=== PATIENT | female | born 1945 | race Caucasian/White ===

== ENCOUNTER 2018-07-18 12:23 | Inpatient (IN) | payer OTHER, MEDICARE ==
[2018-07-18 12:32] VITALS: BMI 21.9
--- NOTE | 2018-07-18 13:37 | PDOC ---
Attending Attestation - HPI HPI: 07/18/18 14:31 The patient is a 73 year old female, with a significant PMH of hypertension, hyperlipidemia, coronary artery disease s/p CABG, who presents to the emergency department with intermittent left sided chest pain for one day. The patient states the chest pain began last night suddenly while watching a movie, described as sharp, non radiating, lasting for 30 minutes before resolving on its own but later returning. The patient denies SOB during the chest pain episodes. However, the patient states she has had more shortness of breath over the past 2 weeks with mild exertion. The patient states she recently traveled to [place]. Denies any recent sick contacts or illness. The patient denies palpitations, headache and dizziness. Denies fever, chills, nausea, vomit, diarrhea and constipation. Denies dysuria, frequency, urgency and hematuria. Allergies: NKA PCP: Dr Mcrae Documentation prepared by Ramesh Peters, acting as medical claims representative for Rhona Chin MD. <Ramesh Peters - Last Filed: 07/18/18 14:31> - Resident Resident Name: Efrain Yoon - ED Attending Attestation I have performed the following: I have examined & evaluated the patient, The case was reviewed & discussed with the resident, I agree w/resident's findings & plan, Exceptions are as noted - Physicial Exam PE: GENERAL: Awake, alert, and fully oriented, in no acute distress HEAD: No signs of trauma EYES: PERRLA, EOMI, sclera anicteric, conjunctiva clear ENT: Auricles normal inspection, hearing grossly normal, nares patent, oropharynx clear without exudates. Moist mucosa NECK: Normal ROM, supple, no lymphadenopathy, JVD, or masses LUNGS: Breath sounds equal, clear to auscultation bilaterally. No wheezes, and no crackles HEART: Regular rate and rhythm, normal S1 and S2, no murmurs, rubs or gallops ABDOMEN: Soft, nontender, normoactive bowel sounds. No guarding, no rebound. No masses EXTREMITIES: Normal range of motion, no edema. No clubbing or cyanosis. No cords, erythema, or tenderness NEUROLOGICAL: Cranial nerves II through XII grossly intact. Normal speech, normal gait. Motor and sensation intact SKIN: Warm, Dry, normal turgor, no rashes or lesions noted. - Medical Decision Making Pt with cp, history of prior CABG. Attempted to obtain a copy of prior EKG, however, unable to (dish up person supervisor calibration was unable to access office records and urgent care medical records was not open today). Will work up for ACS. Serial EKGs. Plan for admission. <Rhona Chin - Last Filed: 07/18/18 15:07>
--- NOTE | 2018-07-18 13:40 | PDOC ---
History of Present Illness - General Chief Complaint: Chest Pain Stated Complaint: CHEST DISCOMFORT Time Seen by Provider: 07/18/18 13:29 History Source: Patient Exam Limitations: No Limitations - History of Present Illness Initial Comments: 07/18/18 13:29 73 yo female pmh of HTN, HLD, CAD, s/p CABG with 2 valves replaced (at [facility] 2015, not on AC, does take ASA 81 daily, PCP and Cardiology are [facility]) last Echo 2015 (prior to CABG) presents to the ED with non exertional CP and SOB on exertion. Pt states pain started suddenly last night while watching a movie, described as sharp, located left chest, non radiating, lasts for 30 min and resolves but returns, denies N/V, left arm/jaw pain, diaphoresis, calf tenderness, lower limb edema, SOB during episodes or pleurictic/reproducible CP. Of note, pts MA presented very atypically with only complaint being SOB while walking. Pt does admit to more recent SOB with mild exertion over the last 1-2 weeks with recent travel from [place], denies recent illness/sick contacts, F/C/N/V, abdominal pain or changes in bowel or bladder habits. Past History - Past Medical History Allergies/Adverse Reactions: Allergies Allergy/AdvReac Type Severity Reaction Status Date / Time No Known Allergies Allergy Verified 07/18/18 12:32 Home Medications: Ambulatory Orders Aspirin [Ecotrin] 81 mg PO DAILY 07/18/18 Atorvastatin Calcium 40 mg PO HS 07/18/18 Carvedilol 6.25 mg PO BID 07/18/18 Lisinopril [Zestril] 2.5 mg PO DAILY 07/18/18 Magnesium 200 mg PO HS 07/18/18 Spironolactone 12.5 mg PO DAILY 07/18/18 COPD: Yes HTN: Yes Hypercholesterolemia: Yes - Surgical History Cardiac Surgery: Yes (2015) - Suicide/Smoking/Psychosocial Hx Smoking History: Never smoked Information on smoking cessation initiated: No Review of Systems - Review of Systems Constitutional: No: Chills, Fever Respiratory: Yes: SOB with Exertion. No: Cough, Orthopnea, Wheezing Cardiac (ROS): Yes: Chest Pain (left sided sharp). No: Edema ABD/GI: No: Constipated, Diarrhea, Nausea, Vomiting : No: Burning, Dysuria, Discharge, Frequency, Flank Pain Musculoskeletal: No: Back Pain Neurological: No: Headache, Numbness, Tingling, Weakness, Unsteady Gait *Physical Exam - Vital Signs Last Vital Signs Temp Pulse Resp BP Pulse Ox 97.9 F 77 18 125/59 L 100 07/18/18 12:28 07/18/18 13:09 07/18/18 13:09 07/18/18 13:09 07/18/18 13:09 - Physical Exam General Appearance: Yes: Nourished, Appropriately Dressed. No: Apparent Distress HEENT: positive: EOMI Respiratory/Chest: positive: Lungs Clear, Normal Breath Sounds. negative: Chest Tender, Accessory Muscle Use, Rapid RR, Crackles, Rales, Rhonchi, Stridor , Wheezing Cardiovascular: positive: Regular Rhythm, Regular Rate, Murmur. negative: Edema , JVD Vascular Pulses: Dorsalis-Pedis (R): 4+, Doralis-Pedis (L): 4+ Gastrointestinal/Abdominal: positive: Normal Bowel Sounds, Flat, Soft. negative : Distended, Guarding, Rebound, Tenderness Musculoskeletal: negative: CVA Tenderness Extremity: positive: Normal Capillary Refill, Normal Inspection Integumentary: positive: Normal Color, Dry, Warm Neurologic: positive: Fully Oriented, Alert, Normal Mood/Affect, Normal Response Moderate Sedation - Procedure Monitoring Vital Signs: Procedure Monitoring Vital Signs Temperature 97.9 F 07/18/18 12:28 Pulse Rate 77 07/18/18 13:09 Respiratory Rate 18 07/18/18 13:09 Blood Pressure 125/59 L 07/18/18 13:09 O2 Sat by Pulse Oximetry (%) 100 07/18/18 13:09 Heart Score/ECG Review - History History: Moderately suspicious - Electrocardiogram EKG: Non specific repolarization disturbance - Age Age: >/= 65 - Risk Factors Risk Factors Heart Score: Yes Hx Hypercholesterolemia, Yes Hx Hypertension, No Hx Diabetes, No Smoking History Based on the list above the patient has:: >/=3 risk factors or Hx atherosclerotic disease - Troponin Troponin: </= normal limit - Score Heart Score - Total: 6 ED Treatment Course - LABORATORY CBC & Chemistry Diagram: 07/18/18 14:12 07/19/18 05:50 Medical Decision Making - Medical Decision Making 07/18/18 14:50 73 yo female pmh of HTN, HLD, CAD, s/p CABG with 2 valves replaced (at [facility] 2015, not on AC, does take ASA 81 daily, PCP and Cardiology are [facility]) last Echo 2015 (prior to CABG) presents to the ED with non exertional CP and SOB on exertion. Of note, first MA presented atypically with SOB on exertion. pt took 81 asa today Vitals WNL AOX3, NAD, resting comfortably in bed without active CP currently DDX INLT: ACS, CHF, PE (no elevated HR, RR, normal O2 saturation and BP without significant risk factors for PE) GERD EKG shows NSR but RBBB with PACs noted HEART score is 6 Today is pts first visit to [facility] and no prior ekg or blood work to compare. Call placed to Pts Primary Equipment Operator/Laborer/Supervisor, Dr. Swain at [facility], Dr. Fredy schreiber who states he is not in office, not familiar with pt and can not send past EKGs or give further information on the pt at this time. Labs: CBC: WNL CMP WNL Trop neg BNP elevated CXR shows enlarged heart without acute pathology Pt continues to rest comfortably without CP and stable vitals in the ED. Lungs clear and no s/s of fluid overload Will admit pt to hospitalist for further ACS/CHF work up. *DC/Admit/Observation/Transfer Diagnosis at time of Disposition: Chest pain, Shortness of breath - Discharge Dispostion Disposition: HOME Condition at time of disposition: Stable Decision to Admit order: Yes - Referrals - Patient Instructions - Post Discharge Activity
[2018-07-18 14:25] LABS: BASO % 1.1 % (0-2.0); HEMATOCRIT 38.7 % (32.4-45.2); HEMOGLOBIN 13.3 GM/dL (10.7-15.3); MCH 31.4 pg (25.7-33.7); MCHC 34.4 g/dl (32.0-36.0); MEAN CELL VOLUME 91.4 fl (80-96); MEAN PLT VOLUME 10.4 fl (7.5-11.1); MONO % 12.6 % (3.8-10.2); NEUT % 59.3 % (42.8-82.8); PLATELET COUNT 128 K/MM3 (134-434); RBC 4.23 M/mm3 (3.60-5.2); RDW 15.1 % (11.6-15.6); WHITE BLOOD COUNT 6.5 K/mm3 (4.0-10.0)
[2018-07-18 14:58] LABS: ALBUMIN 3.5 g/dl (3.4-5.0); ALK PHOS 88 U/L (45-117); ANION GAP 3 MMOL/L (8-16); BILIRUBIN,TOTAL 0.4 mg/dL (0.2-1); BLOOD UREA NITROGEN 17 mg/dL (7-18); CALCIUM 8.9 mg/dL (8.5-10.1); CHLORIDE 107 mmol/L (98-107); CO2 29 mmol/L (21-32); CREATININE 1.1 mg/dL (0.55-1.3); GLUCOSE,RANDOM 95 mg/dL (74-106); N-TERMINAL BNP 1162.4 pg/ml (5-125); POTASSIUM 5.1 mmol/L (3.5-5.1); SGOT/AST 26 U/L (15-37); SGPT/ALT 17 U/L (13-61); SODIUM 139 mmol/L (136-145); TOT PROT 6.6 g/dl (6.4-8.2)
--- NOTE | 2018-07-18 16:30 | HP ---
CHIEF COMPLAINT: chest pain x 2 days PCP: Dr. Eric Mcrae Cardio: Dr. Silvino Swian ([facility]) HISTORY OF PRESENT ILLNESS: 73 y/o F with hx HTN, HLD, CAD s/p CABG (2016), two valve repair, who presents to the ED c/o chest pain x 2 days. As per pt, she went out to the movies last night with family. She was sitting in her seat when developed sudden chest pain in her L mid-sternal area. States that it felt like a dull ache, and was constant, w/o radiation. No alleviating or exacerbating fx. Non-positional. She subsequently went home and was able to fall asleep, however after she woke up, the same, continual pain bothered her. She told her family and they recommended she come to the ED for evaluation. Pt also endorses recent SOB, especially on exertion, while carrying objects. Recently traveled on from [place]. Denies [place], fever, chills, SOB, chest pressure, or changes in urinary or bowel function. Of note, before her CABG, cath in 2015, she had an abnormal stress test. Pt does not know the exact result. Also had atypical PA symptoms previously which included SOB. Her cardio is Dr. Silvino Swain, from [facility]. ER course was notable for: (1) EKG: RBBB, TWI anterior leads (2) (3) Recent Travel: on from [place] PAST MEDICAL HISTORY: as above PAST SURGICAL HISTORY: as above, fibroid removal 1992) Social History: used to work as the channel executive for [employer] Smoking: in past used to smoke few cigarettes when she drank Alcohol: socially Drugs: denies Family History: mother - HTN, ?brain aneurysm. father - HTN, throat cancer (tx w chemo), blood clot and bled from a/c Allergies No Known Allergies Allergy (Verified 07/18/18 12:32) HOME MEDICATIONS: Home Medications Medication Instructions Recorded Aspirin [Ecotrin] 81 mg PO DAILY 07/18/18 Atorvastatin Calcium 40 mg PO HS 07/18/18 Carvedilol 6.25 mg PO BID 07/18/18 Lisinopril [Zestril] 2.5 mg PO DAILY 07/18/18 Magnesium 200 mg PO HS 07/18/18 Spironolactone 12.5 mg PO DAILY 07/18/18 meds have been confirmed with pt REVIEW OF SYSTEMS CONSTITUTIONAL: Absent: fever, chills, diaphoresis, generalized weakness, malaise, loss of appetite, weight change HEENT: Absent: rhinorrhea, nasal congestion, throat pain, throat swelling, difficulty swallowing, mouth swelling, ear pain, eye pain, visual changes CARDIOVASCULAR: +chest pain Absent: syncope, palpitations, irregular heart rate, lightheadedness, peripheral edema RESPIRATORY: Absent: cough, shortness of breath, dyspnea with exertion, orthopnea, wheezing, stridor, hemoptysis GASTROINTESTINAL: Absent: abdominal pain, abdominal distension, nausea, vomiting, diarrhea, constipation, melena, hematochezia GENITOURINARY: Absent: dysuria, frequency, urgency, hesitancy, hematuria, flank pain, genital pain MUSCULOSKELETAL: Absent: myalgia, arthralgia, joint swelling, back pain, neck pain SKIN: Absent: rash, itching, pallor HEMATOLOGIC/IMMUNOLOGIC: Absent: easy bleeding, easy bruising, lymphadenopathy, frequent infections ENDOCRINE: Absent: unexplained weight gain, unexplained weight loss, heat intolerance, cold intolerance NEUROLOGIC: Absent: headache, focal weakness or paresthesias, dizziness, unsteady gait, seizure, mental status changes, bladder or bowel incontinence PSYCHIATRIC: Absent: anxiety, depression, suicidal or homicidal ideation, hallucinations. PHYSICAL EXAMINATION Vital Signs - 24 hr 07/18/18 07/18/18 12:28 13:09 Temperature 97.9 F Pulse Rate 77 77 Respiratory 18 18 Rate Blood Pressure 125/59 L 125/59 L O2 Sat by Pulse 100 100 Oximetry (%) GENERAL: Pleasant. Awake, alert, and fully oriented, in no acute distress. HEAD: Normal with no signs of trauma. EYES: Pupils equal, round and reactive to light, extraocular movements intact, sclera anicteric, conjunctiva clear. EARS, NOSE, THROAT: Ears normal, nares patent, oropharynx clear without exudates. Moist mucous membranes. NECK: Normal range of motion, supple LUNGS: Breath sounds equal, clear to auscultation bilaterally. No wheezes, and no crackles. No accessory muscle use. HEART: Regular rate and rhythm, normal S1 and S2. +systolic murmur appreciated RUSB ABDOMEN: Soft, nontender, not distended, normoactive bowel sounds, no guarding LOWER EXTREMITIES: 2+ pt pulses, warm, well-perfused. No peripheral edema. NEUROLOGICAL: Cranial nerves II-XII intact. Normal speech. PSYCHIATRIC: Cooperative. Good eye contact. SKIN: Warm, dry, normal turgor Laboratory Results - last 24 hr 07/18/18 07/18/18 14:12 14:12 WBC 6.5 RBC 4.23 Hgb 13.3 Hct 38.7 MCV 91.4 MCH 31.4 MCHC 34.4 RDW 15.1 Plt Count 128 L MPV 10.4 Absolute Neuts (auto) 3.9 Neutrophils % 59.3 Lymphocytes % 24.0 Monocytes % 12.6 H Eosinophils % 3.0 Basophils % 1.1 Nucleated RBC % 0 Sodium 139 Potassium 5.1 Chloride 107 Carbon Dioxide 29 Anion Gap 3 L BUN 17 Creatinine 1.1 Creat Clearance w eGFR 48.55 Random Glucose 95 Calcium 8.9 Total Bilirubin 0.4 AST 26 ALT 17 Alkaline Phosphatase 88 Creatine Kinase 103 Troponin I < 0.02 B-Natriuretic Peptide 1162.4 H Total Protein 6.6 Albumin 3.5 EKG: +RBBB, with TWI in anterior leads. unclear if new from previous, no past records in our system ASSESSMENT/PLAN: 73 y/o F with hx HTN, HLD, CAD s/p CABG (2015), two valve repair, who presents to the ED c/o chest pain x 2 days. #Chest pain, r/o ACS -with RBBB, TWI anterior leads. unclear if new from previous -serial EKGs. in case anything evolving -as with no past records, will need to d/w home cardio: Dr. Swain past w/u -f/u ECHO, lipid profile, a1c -first 2 trops (-) -c/w asa, lipitor -K>4, Mg>2 -Cardio consult: Dr. Mtz #SOB, [place] -possible it is cardiac, however as with recent travel -will f/u d-dimer. if + will CTA #CAD s/p CABG (2015) -c/w asa 81 #HTN-currently controlled -c/w coreg, lisinopril #HLD -c/w lipitor -f/u lipid profile #F/E/N no need for IVF at this time continue to follow lytes cholesterol/sodium controlled diet #PPX DVT: Hep 5k sq tid #Dispo tele-obs Visit type - Emergency Visit Emergency Visit: Yes ED Registration Date: 07/18/18 Care time: The patient presented to the Emergency Department on the above date and was hospitalized for further evaluation of their emergent condition. - New Patient This patient is new to me today: Yes Date on this admission: 07/18/18 - Critical Care Critical Care patient: No
[2018-07-18 17:34] LABS: CHOLESTEROL 127 mg/dL (50-200); HDL CHOLESTEROL 57 mg/dL (40-60); TRIGLYCERIDES 97 mg/dL (0-150)
--- NOTE | 2018-07-18 18:34 | PN ---
Teaching Attending Note Name of Resident: Delmy Boateng ATTENDING PHYSICIAN STATEMENT I saw and evaluated the patient. I reviewed the resident's note and discussed the case with the resident. I agree with the resident's findings and plan as documented. SUBJECTIVE:73 y/o F with hx HTN, HLD, CAD s/p CABG (2015), two valve repair, who presents to the ED c/o chest pain x 2 days. started last night at rest. non radiating and not assoc with any other symptoms. CP self resolved after several hours. seems shes been having progressive dyspnea on exertion on activities she normally can not complete. ie climbing 2 flights of stairs while carrying laundry or [place] recently [place] from [place] which she said she got dyspnic when carrying her luggage to the car. denies CP at this time, SOB, fever, chills, cough, hemoptysis, N/V/C/D Had dyspnea on exertion 3 years ago and underwent stress test which was positive and resulted in CABG. no repeat stress or cath since that time OBJECTIVE: Last Vital Signs Temp Pulse Resp BP Pulse Ox 97.9 F 77 18 125/59 L 100 07/18/18 12:28 07/18/18 13:09 07/18/18 13:09 07/18/18 13:09 07/18/18 13:09 General NAD CV S1 S2 RRR +murmur Lungs CTA B/L no wheezing/rales/rhonchi ABdomen soft NT/ND Extremities no pedal edema, no calf tenderness ASSESSMENT AND PLAN: 73 y/o F with hx HTN, HLD, CAD s/p CABG (2015), two valve repair, who presents to the ED c/o chest pain x 2 days 1. CP- r/o ACS. continuous cardiac monitoring. first troponin is negative. trend Q8H with EKG. EKG showing RBB with L hemiblock but do not have a baseline EKG here. low concern for PE but need to consider due to recent flight but symptoms seems to have started prior to this. will check d-dimer. consider CTA if +. check echo. consult cardio, cont asa/statin 2. HTN- controlled. cont home medications 3. DVT ppx- EAM 4. spoke with son present at bedside. all questions answered.
[2018-07-18] MEDS ORDERED: ATORVASTATIN CA 40 MG TABLET (FP) PO SCH (22:00)
[2018-07-18] MEDS: CARVEDILOL 6.25 MG TABLET (FP) PO SCH (22:45)
[2018-07-18] MEDS ORDERED: CARVEDILOL 3.125 MG TABLET (FP) ONE (22:55)
[2018-07-18] MEDS ORDERED: HEPARIN NA (PORCINE) 5,000 UNITS/ML 1ML VIAL ONE (22:55)
[2018-07-18] MEDS ORDERED: ATORVASTATIN CA 10 MG TABLET (FP) ONE (22:55)
[2018-07-18] MEDS: HEPARIN NA (PORCINE) 5,000 UNITS/ML 1ML VIAL SQ SCH (23:17)
--- NOTE | 2018-07-18 23:46 | EKG ---
Test Reason : Blood Pressure : / mmHG Vent. Rate : 068 BPM Atrial Rate : 068 BPM P-R Int : 152 ms QRS Dur : 136 ms QT Int : 450 ms P-R-T Axes : 055 -73 052 degrees QTc Int : 478 ms SINUS RHYTHM WITH PREMATURE ATRIAL COMPLEXES RIGHT BUNDLE BRANCH BLOCK LEFT ANTERIOR FASCICULAR BLOCK BIFASCICULAR BLOCK VOLTAGE CRITERIA FOR LEFT VENTRICULAR HYPERTROPHY ABNORMAL ECG NO PREVIOUS ECGS AVAILABLE Confirmed by EFREN ROLLE MD ([id number]) on 07/18/2018 11:45:39 PM Referred By: Confirmed By:EFREN ROLLE MD
[2018-07-19] MEDS ORDERED: SODIUM CHLORIDE 1,000 ML IV SCH (01:15)
[2018-07-19] MEDS ORDERED: HEPARIN NA (PORCINE) 5,000 UNITS/ML 1ML VIAL ONE (06:01)
[2018-07-19] MEDS: HEPARIN NA (PORCINE) 5,000 UNITS/ML 1ML VIAL SQ SCH ×2 (06:52→14:43)
[2018-07-19] MEDS ORDERED: ASPIRIN COATED 81 MG TABLET.EC PO SCH (10:00)
[2018-07-19] MEDS ORDERED: SPIRONOLACTONE 25 MG TABLET (FP) PO SCH (10:00)
[2018-07-19] MEDS ORDERED: LISINOPRIL 5 MG TABLET (FP) PO SCH (10:00)
--- NOTE | 2018-07-19 10:08 | EKG ---
Test Reason : Blood Pressure : / mmHG Vent. Rate : 058 BPM Atrial Rate : 058 BPM P-R Int : 200 ms QRS Dur : 140 ms QT Int : 452 ms P-R-T Axes : 057 -71 -58 degrees QTc Int : 443 ms SINUS BRADYCARDIA RIGHT BUNDLE BRANCH BLOCK LEFT ANTERIOR FASCICULAR BLOCK BIFASCICULAR BLOCK MINIMAL VOLTAGE CRITERIA FOR LVH, MAY BE NORMAL VARIANT POSSIBLE ANTERIOR INFARCT , AGE UNDETERMINED T WAVE ABNORMALITY, CONSIDER INFERIOR ISCHEMIA ABNORMAL ECG WHEN COMPARED WITH ECG OF 18-JUL-2018 12:25, PREMATURE ATRIAL COMPLEXES ARE NO LONGER PRESENT T WAVE VARIATION Confirmed by OZZIE BEARD, LEO ([id number]) on 07/19/2018 10:07:50 AM Referred By: EMIL BAKER Confirmed By:LEO HORNE MD
[2018-07-19] MEDS: CARVEDILOL 6.25 MG TABLET (FP) PO SCH (11:16)
--- NOTE | 2018-07-19 11:36 | PN ---
Physical Exam: SUBJECTIVE: Patient seen and examined at bedside. no more complaints of cp. overnight went for CTA and received contrast but ct scan was not working and pt could not get scan. denies fever, chills, cp, sob, n/v/d OBJECTIVE: Vital Signs Period Temp Pulse Resp BP Sys/Simon Pulse Ox Last 24 Hr 97.7 F-98.1 F 55-77 17-18 125-136/59-69 97-100 GENERAL: Pleasant. Awake, alert, and fully oriented, in no acute distress. HEAD: NCAT EYES: Pupils equal, round and reactive to light, extraocular movements intact, sclera anicteric, conjunctiva clear. EARS, NOSE, THROAT: nares patent, oropharynx clear without exudates. MMM NECK: Normal range of motion, supple Chest/LUNGS: CTAB, VINH chest surgical scar from breast cancer removal/s/p b/l masectomy HEART: RRR, normal S1 and S2. +systolic murmur appreciated RUSB ABDOMEN: Soft, nontender, not distended, normoactive bowel sounds, no guarding LOWER EXTREMITIES: 2+ pt pulses, warm, well-perfused. No peripheral edema. NEUROLOGICAL: Cranial nerves II-XII intact. Normal speech. PSYCHIATRIC: Cooperative. Good eye contact. SKIN: Warm, dry, normal turgor Laboratory Results - last 24 hr 07/18/18 07/18/18 07/18/18 14:12 14:12 15:49 WBC 6.5 RBC 4.23 Hgb 13.3 Hct 38.7 MCV 91.4 MCH 31.4 MCHC 34.4 RDW 15.1 Plt Count 128 L MPV 10.4 Absolute Neuts (auto) 3.9 Neutrophils % 59.3 Lymphocytes % 24.0 Monocytes % 12.6 H Eosinophils % 3.0 Basophils % 1.1 Nucleated RBC % 0 D-Dimer Sodium 139 Potassium 5.1 Chloride 107 Carbon Dioxide 29 Anion Gap 3 L BUN 17 Creatinine 1.1 Creat Clearance w eGFR 48.55 Random Glucose 95 Hemoglobin A1c % Calcium 8.9 Total Bilirubin 0.4 AST 26 ALT 17 Alkaline Phosphatase 88 Creatine Kinase 103 Troponin I < 0.02 < 0.02 B-Natriuretic Peptide 1162.4 H Total Protein 6.6 Albumin 3.5 Triglycerides 97 Cholesterol 127 Total LDL Cholesterol 51 HDL Cholesterol 57 07/18/18 07/18/18 07/18/18 15:49 20:00 20:08 WBC RBC Hgb Hct MCV MCH MCHC RDW Plt Count MPV Absolute Neuts (auto) Neutrophils % Lymphocytes % Monocytes % Eosinophils % Basophils % Nucleated RBC % D-Dimer 806 H Sodium Potassium Chloride Carbon Dioxide Anion Gap BUN Creatinine Creat Clearance w eGFR Random Glucose Hemoglobin A1c % 6.0 Calcium Total Bilirubin AST ALT Alkaline Phosphatase Creatine Kinase Troponin I < 0.02 B-Natriuretic Peptide Total Protein Albumin Triglycerides Cholesterol Total LDL Cholesterol HDL Cholesterol 07/19/18 05:50 WBC RBC Hgb Hct MCV MCH MCHC RDW Plt Count MPV Absolute Neuts (auto) Neutrophils % Lymphocytes % Monocytes % Eosinophils % Basophils % Nucleated RBC % D-Dimer Sodium Potassium Chloride Carbon Dioxide Anion Gap BUN Creatinine Creat Clearance w eGFR Random Glucose Hemoglobin A1c % Calcium Total Bilirubin AST ALT Alkaline Phosphatase Creatine Kinase Troponin I < 0.02 B-Natriuretic Peptide Total Protein Albumin Triglycerides Cholesterol Total LDL Cholesterol HDL Cholesterol Active Medications Generic Name Dose Route Start Last Admin Trade Name Freq PRN Reason Stop Dose Admin Aspirin 81 mg 07/19/18 10:00 07/19/18 11:16 Ecotrin - PO 81 mg DAILY RIGOBERTO Administration Atorvastatin Calcium 20 mg 07/19/18 22:00 Lipitor - PO HS RIGOBERTO Carvedilol 6.25 mg 07/18/18 22:00 07/19/18 11:16 Coreg - PO 6.25 mg BID RIGOBERTO Administration Heparin Sodium (Porcine) 5,000 unit 07/18/18 22:00 07/19/18 06:52 Heparin - SQ 5,000 unit TID RIGOBERTO Administration Sodium Chloride 1,000 mls @ 42 mls/hr 07/19/18 01:15 07/19/18 01:31 Normal Saline - IV 42 mls/hr ASDIR RIGOBERTO Administration Lisinopril 2.5 mg 07/19/18 10:00 07/19/18 11:17 Prinivil PO 2.5 mg DAILY RIGOBERTO Administration Spironolactone 12.5 mg 07/19/18 10:00 07/19/18 11:16 Aldactone - PO 12.5 mg DAILY RIGOBERTO Administration EKG: +RBBB, LEFT ANTERIOR FASCICULAR BLOCK, with TWI in anterior leads. unclear if new from previous, no past records in our system CXR no acute pathology ASSESSMENT/PLAN: 73 y/o F with hx HTN, HLD, CAD s/p CABG (2015), two valve repair, breast cancer s/p , who presents to the ED c/o chest pain x 2 days. #Chest pain, r/o ACS -with RBBB, with L hemiblock. TWI anterior leads. but do not have a baseline EKG here -as with no past records, will need to d/w home cardio: Dr. Swain past w/u -pt also now states she did have a NMST done 5 months ago and was normal. ( exercise stress done 3 years ago) -f/u ECHO -lipid profile nl, however high ASCVD score -A1c 6.0 -trops negx3 -c/w ASA, lipitor 20HS -K>4, Mg>2 -Cardio consult: Dr. Mtz #Elevated d-dimer 806 - r/o PE, w/ recent flight but sxs seems to have started prior to this. low concern for PE but need to r/o -overnight went for CTA and received contrast but ct scan was not working and pt could not get scan -will hydrate pt w/ PO and IVF -will try again for CTA today #CAD s/p CABG (2015) -c/w asa 81 #HTN-currently controlled -c/w coreg, lisinopril #HLD -c/w lipitor -lipid profile nl, however high ASCVD score #F/E/N NS 42cc.hr continue to follow lytes cholesterol/sodium controlled diet #PPX DVT: Hep 5k sq tid #Dispo tele-obs Visit type - Emergency Visit Emergency Visit: Yes ED Registration Date: 07/18/18 Care time: The patient presented to the Emergency Department on the above date and was hospitalized for further evaluation of their emergent condition. - New Patient This patient is new to me today: Yes Date on this admission: 07/19/18 - Critical Care Critical Care patient: No
[2018-07-19 11:56] LABS: ANION GAP 4 MMOL/L (8-16); BLOOD UREA NITROGEN 16 mg/dL (7-18); CALCIUM 8.7 mg/dL (8.5-10.1); CHLORIDE 106 mmol/L (98-107); CO2 27 mmol/L (21-32); GLUCOSE,RANDOM 94 mg/dL (74-106); MAGNESIUM 2.1 mg/dL (1.8-2.4); PHOSPHOROUS 3.5 mg/dL (2.5-4.9); POTASSIUM 5.2 mmol/L (3.5-5.1); SODIUM 137 mmol/L (136-145)
--- NOTE | 2018-07-19 12:16 | PN ---
Teaching Attending Note Name of Resident: Paulie Partida ATTENDING PHYSICIAN STATEMENT I saw and evaluated the patient. I reviewed the resident's note and discussed the case with the resident. I agree with the resident's findings and plan as documented. SUBJECTIVE:no repeat episodes of CP or SOB, denies CP, SOB, fever, chills, N/V/C /D or hemoptysis OBJECTIVE: Last Vital Signs Temp Pulse Resp BP Pulse Ox 97.7 F 60 17 136/69 97 07/19/18 11:17 07/19/18 11:17 07/19/18 11:17 07/19/18 11:17 07/19/18 11:17 General NAD CV S1 S2 RRR +murmur no chest wall tenderness Extremities no pedal edema, no calf tenderness ASSESSMENT AND PLAN: 73 y/o F with hx HTN, HLD, CAD s/p CABG (2015), two valve repair, who presents to the ED c/o chest pain x 2 days 1. CP- r/o ACS. cardiac markers neg x3. Ddimer was elevated and CTA was ordered , however after pt received contrast, the machine was no longer working. will make another attempt. pt also now states she did have a NMST done 5 months ago and was normal. (exercise stress done 3 years ago). will reach out to her imaging tech to see if he would like to repeat stress or would like us to do it in house at this time. awaiting cardio eval here. 2. HTN- controlled. cont home medications 3. DVT ppx- EAM
[2018-07-19] MEDS ORDERED: SODIUM POLYSTYRENE SULFONATE 15 GM/60 ML BOTTLE PO ONE (13:15)
--- NOTE | 2018-07-19 15:18 | CON.CARD ---
Consult Consult Specialty:: Cardiology Reason for Consultation:: Chest pain - History of Present Illness Chief Complaint: Chest pain History of Present Illness: 73 year-old woman with a PMHx of HTN, HLD, CAD s/p CABG and two valve repair on 07/27/2014 at [facility] presents too ED 07/18/2018 with chest pain x 2 days. The patient developed chest pain while sitting one day prior to her presentation. Chest pain was located in the left mid-sternal area. States that it felt like a dull ache, and was constant, w/o radiation. Deep inspiration worsened her chest pain. She has no recurrent chest pain today. ECG sinus rhythm with APCs, LAD, RBBB and LVH. No evidence of NV. BNP and D-dimer are elevated. CT angio ruled out PE. She called the office of Dr. Silvino Swain, general science teacher at [facility]. She wants to go home and see Dr. Swain tomorrow. - History Source History Provided By: Patient, Medical Record Limitations to Obtaining History: No Limitations - Smoking History Smoking history: Never smoked Home Medications - Allergies Allergies/Adverse Reactions: Allergies Allergy/AdvReac Type Severity Reaction Status Date / Time No Known Allergies Allergy Verified 07/18/18 12:32 - Home Medications Home Medications: Ambulatory Orders Aspirin [Ecotrin] 81 mg PO DAILY 07/18/18 Atorvastatin Calcium 40 mg PO HS 07/18/18 Carvedilol 6.25 mg PO BID 07/18/18 Lisinopril [Zestril] 2.5 mg PO DAILY 07/18/18 Magnesium 200 mg PO HS 07/18/18 Spironolactone 12.5 mg PO DAILY 07/18/18 Review of Systems - Review of Systems Cardiovascular: reports: Chest Pain Vital Signs: Vital Signs Temperature 97.7 F 07/19/18 11:17 Pulse Rate 60 07/19/18 11:17 Respiratory Rate 17 07/19/18 11:17 Blood Pressure 136/69 07/19/18 11:17 O2 Sat by Pulse Oximetry (%) 100 07/19/18 14:02 - Other Data Labs, Other Data: CBC, BMP 07/18/18 14:12 07/19/18 05:50 Troponin, BNP 07/18/18 07/18/18 07/19/18 15:49 20:00 05:50 Troponin I < 0.02 < 0.02 < 0.02 Troponin, BNP 07/18/18 07/18/18 07/19/18 15:49 20:00 05:50 Troponin I < 0.02 < 0.02 < 0.02 Assessment/Plan 73 year-old woman with a PMHx of HTN, HLD, CAD s/p CABG X3 and two valve repair on 07/27/2014 at [facility] presents too ED 07/18/2018 with chest pain x 2 days. ECG sinus rhythm with APCs, LAD, RBBB and LVH. No evidence of NV. BNP and D-dimer are elevated. CT angio ruled out PE. 1) Chest pain with atypical features, likely NOT ACS. No evidence of NV. Her Baseline ECG is abnormal. She called the office of Dr. Silvino Swain, general science teacher at [facility]. She wants to go home and see Dr. Swain tomorrow. She is stable enough to be discharged with close out-pt cardiac follow up. Continue aspirin, atorvastatin and carvedilol. 2) CHF with elevated BNP, s/p two valve repair with mitral regurgitation murmur. No physical signs of fluid overload. 3) Echo and nuclear stress test recommend if she could stay in the hospital.
[2018-07-19 16:53] VITALS: BP 112/56; PULSE 68; TEMP 98.3
--- NOTE | 2018-07-19 17:10 | DS ---
Physical Exam: SUBJECTIVE: Patient seen and examined at bedside. no more complaints of cp. CTA neg for PE. cardio recs echo and stress test but pt wants to go home and per cardio pt can f/u w/ out cardio. denies fever, chills, cp, sob, n/v/d old records obtained from [facility], pt apparently has had hx of RBBB w/ L axis bifasicular block since 2017. OBJECTIVE: Vital Signs Period Temp Pulse Resp BP Sys/Simon Pulse Ox Last 24 Hr 97.7 F-98.3 F 55-68 17-18 112-136/56-69 97-100 PHYSICAL EXAM GENERAL: Pleasant. Awake, alert, and fully oriented, in no acute distress. HEAD: NCAT EYES: Pupils equal, round and reactive to light, extraocular movements intact, sclera anicteric, conjunctiva clear. EARS, NOSE, THROAT: nares patent, oropharynx clear without exudates. MMM NECK: Normal range of motion, supple Chest/LUNGS: CTAB, VINH chest surgical scar from breast cancer removal/s/p b/l masectomy HEART: RRR, normal S1 and S2. +systolic murmur appreciated RUSB ABDOMEN: Soft, nontender, not distended, normoactive bowel sounds, no guarding LOWER EXTREMITIES: 2+ pt pulses, warm, well-perfused. No peripheral edema. NEUROLOGICAL: Cranial nerves II-XII intact. Normal speech. PSYCHIATRIC: Cooperative. Good eye contact. SKIN: Warm, dry, normal turgor LABS Laboratory Results - last 24 hr 07/18/18 07/18/18 07/18/18 15:49 15:49 20:00 D-Dimer Sodium Potassium Chloride Carbon Dioxide Anion Gap BUN Creatinine Creat Clearance w eGFR Random Glucose Hemoglobin A1c % 6.0 Calcium Phosphorus Magnesium Troponin I < 0.02 < 0.02 Triglycerides 97 Cholesterol 127 Total LDL Cholesterol 51 HDL Cholesterol 57 07/18/18 07/19/18 20:08 05:50 D-Dimer 806 H Sodium 137 Potassium 5.2 H Chloride 106 Carbon Dioxide 27 Anion Gap 4 L BUN 16 Creatinine 1.0 Creat Clearance w eGFR 54.20 Random Glucose 94 Hemoglobin A1c % Calcium 8.7 Phosphorus 3.5 Magnesium 2.1 Troponin I < 0.02 Triglycerides Cholesterol Total LDL Cholesterol HDL Cholesterol 5024-4241 CT/CHEST CTA Clinical history: Breath and positive d-dimer 73-year-old female. Comparison: None. Contiguous transaxial images were obtained from the lung apices to the bases with windows obtained for mediastinal and lung parenchymal detail. Images were obtained during the arterial phase for evaluation of pulmonary emboli. Sagittal and coronal reconstructions were performed. 3-D reconstructions were also obtained. No emboli were seen. Mediastinum: Cardiomegaly and artificial valves. Lungs: Chronic biapical changes. Scattered small blebs. Mild atelectasis. Fissural thickening on the left. Bone: Osteopenia. Cursory scanning of the upper abdomen: Multiple hepatic cysts and a small calcification. Cholelithiasis. Mild hyperplasia of the adrenals of aging. Impression: No emboli were seen. Other findings as above. Clinical correlation advised. EKG: +RBBB, LEFT ANTERIOR FASCICULAR BLOCK, with TWI in anterior leads. unclear if new from previous, no past records in our system CXR no acute pathology old records obtained from [facility], pt apparently has had hx of RBBB w/ L axis bifasicular block since 2016. HOSPITAL COURSE: Date of Admission:07/18/18 Date of Discharge: 07/19/18 73 y/o F with hx HTN, HLD, CAD s/p CABG (2016), two valve repair, breast cancer s/p, recent flight who presents to the ED c/o chest pain x 2 days. pt states she did have a NMST done 5 months ago and was normal. (exercise stress done 3 years ago) Admitted for Chest pain, r/o ACS, r/o PE. BNP and D-dimer [address] angio ruled out PE. No physical signs of fluid overload. EKG w/ RBBB, with L hemiblock. TWI anterior leads. old records obtained from [facility], pt apparently has had hx of RBBB w/ L axis bifasicular block since 2016. trops negx3. CXR no acute pathology. lipid profile nl, however high ASCVD score. A1c 6.0. Cardio consulted: Asael Wayne. per cardio, Chest pain with atypical features, likely NOT ACS. No evidence of MA, EKG at baseline. recommended that ideally pt have Echo and nuclear stress test here, however since pt already reached out to her paper colorer office Dr. Swain at [facility] and that cardio feels pt is stable enough to be discharged with close out-pt cardiac follow up within the next few days, pt will go to Dr. Swain tomorrow. Multiple hepatic cysts and a small calcification noted on CTA, pt informed to talk to pcp about possible rpt imaging pt is stable and ready for dc w/ appropriate f/u Minutes to complete discharge: 39 Discharge Summary Reason For Visit: SHORTNESS OF BREATH, CHEST PAIN ' Current Active Problems Chest pain (Acute) Shortness of breath (Acute) Condition: Stable - Instructions Diet, Activity, Other Instructions: you came in with chest pain. your EKG and labs showed no evidence of heart attack. you were seen by the paper colorer and it was recommended you get an ultrasound of the heart and a stress test. You wished to follow up and do these tests with your paper colorer Dr. Silvino Swain, at [facility]. you called his office today. CT scan of your chest showed no clots in the lung. However your liver did show some cysts/fluid mass collection. Please talk to your primary care physician about whether you need to repeat any CT scan or ultrasound in the next few months. Please resume your home meds. Please follow up with your your primary care physician within 1 week Please follow up with your paper colorer Dr. Silvino Swain tomorrow or with paper colorer Dr Chapman If you experience any worsening chest pain, shortness of breath, headache, nausea, vomit, dizzy, please call 911 or go to the ER Referrals: Eric Mcrae [Primary Care Provider] - 1 Week Asael Chapman MD [Staff Physician] - 1 Week Disposition: HOME - Home Medications Comprehensive Discharge Medication List: Ambulatory Orders Aspirin [Ecotrin] 81 mg PO DAILY 07/18/18 Atorvastatin Calcium 40 mg PO HS 07/18/18 Carvedilol 6.25 mg PO BID 07/18/18 Lisinopril [Zestril] 2.5 mg PO DAILY 07/18/18 Magnesium 200 mg PO HS 07/18/18 Spironolactone 12.5 mg PO DAILY 07/18/18 This patient is new to me today: Yes Date on this admission: 07/19/18 Emergency Visit: Yes ED Registration Date: 07/18/18 Care time: The patient presented to the Emergency Department on the above date and was hospitalized for further evaluation of their emergent condition. Critical Care patient: No - Discharge Referral Referred to [facility] Med P.C.: No
[2018-07-19] MEDS ORDERED: ATORVASTATIN CA 20 MG TABLET (FP) PO SCH (22:00)
== END 2018-07-19 17:06 | disposition home or self-care (01) | DRG 303 ==
LOC: JER 12:23 → JERBED 15:42
PROVIDERS: ADMIT Internal Medicine; ATTEND Internal Medicine
DX: I25.10 Atherosclerotic heart disease of native coronary artery without angina pectoris (principal); I45.2 Bifascicular block; I10 Essential (primary) hypertension; E78.5 Hyperlipidemia, unspecified; Z95.1 Presence of aortocoronary bypass graft; R07.89 Other chest pain
CPT/HCPCS: 36415; 71045-TC-FY; 71275-TC; 80048; 80053; 80061; 82550; 83036; 83721; 83735; 83880; 84100; 84484; 85025; 85379; 93005; 93010; 99285-25; J1644; J7030

== ENCOUNTER 2020-04-28 13:22 | Inpatient (IN) | payer OTHER ==
[2020-04-28 13:56] LABS: EOS % 0.8 % (0-4.5); HEMATOCRIT 34.5 % (32.4-45.2); LYMPH % 16.6 % (8-40); MCH 26.9 pg (25.7-33.7); MCHC 31.8 g/dl (32.0-36.0); MEAN CELL VOLUME 84.6 fl (80-96); MEAN PLT VOLUME 10.7 fl (7.5-11.1); MONO % 6.6 % (3.8-10.2); PLATELET COUNT 185 K/MM3 (134-434); RBC 4.07 M/mm3 (3.60-5.2); RDW 15.8 % (11.6-15.6); WHITE BLOOD COUNT 9.3 K/mm3 (4.0-10.0)
[2020-04-28 14:03] LABS: INR 1.02 (0.83-1.09); PROTHROMBIN TIME (PATIENT) 12.5 SEC (9.7-13.0)
[2020-04-28 14:05] LABS: ACTIVATED PTT 29.8 SECONDS (25.2-36.5)
[2020-04-28 14:26] LABS: BLOOD UREA NITROGEN 23.3 mg/dL (7-18); CALCIUM 9.5 mg/dL (8.5-10.1)
[2020-04-28 14:27] LABS: ALBUMIN 3.8 g/dl (3.4-5.0)
[2020-04-28 14:29] LABS: CREATININE 1.5 mg/dL (0.55-1.3)
[2020-04-28 14:31] LABS: BILIRUBIN,TOTAL 0.8 mg/dL (0.2-1)
[2020-04-28] MEDS ORDERED: FUROSEMIDE 40 MG/4 ML INJECTABLE VIAL IVPUSH ONE ×2 (16:54→18:34)
[2020-04-28] MEDS ORDERED: FUROSEMIDE 40 MG/4 ML INJECTABLE VIAL ONE (17:47)
[2020-04-28] MEDS ORDERED: ATORVASTATIN CA 40 MG TABLET (FP) ONE (22:08)
[2020-04-28] MEDS ORDERED: MAGNESIUM OXIDE 400 MG TABLET (FP) ONE (22:08)
[2020-04-28] MEDS ORDERED: CARVEDILOL 12.5 MG TABLET (FP) ONE (22:08)
[2020-04-28] MEDS: MAGNESIUM OXIDE 400 MG TABLET (FP) PO SCH (22:19)
[2020-04-28] MEDS: CARVEDILOL 6.25 MG TABLET (FP) PO SCH (22:19)
[2020-04-28] MEDS: ATORVASTATIN CA 40 MG TABLET (FP) PO SCH (22:19)
[2020-04-29 07:37] LABS: BASO % 0.6 % (0-2.0); EOS % 0.1 % (0-4.5); HEMATOCRIT 29.8 % (32.4-45.2); HEMOGLOBIN 9.8 GM/dL (10.7-15.3); LYMPH % 10.1 % (8-40); MCH 27.3 pg (25.7-33.7); MEAN CELL VOLUME 82.9 fl (80-96); MEAN PLT VOLUME 10.7 fl (7.5-11.1); MONO % 9.9 % (3.8-10.2); NEUT % 79.3 % (42.8-82.8); PLATELET COUNT 149 K/MM3 (134-434); RBC 3.59 M/mm3 (3.60-5.2); RDW 15.1 % (11.6-15.6)
[2020-04-29 07:59] LABS: POTASSIUM 4.2 mmol/L (3.5-5.1)
[2020-04-29 08:10] LABS: CREATININE 1.4 mg/dL (0.55-1.3)
[2020-04-29 08:11] LABS: ALBUMIN 3.3 g/dl (3.4-5.0)
[2020-04-29 08:12] LABS: BILIRUBIN,TOTAL 1.3 mg/dL (0.2-1); TOT PROT 6.1 g/dl (6.4-8.2)
[2020-04-29 08:13] LABS: CALCIUM 8.8 mg/dL (8.5-10.1)
[2020-04-29 08:14] LABS: BLOOD UREA NITROGEN 27.2 mg/dL (7-18)
[2020-04-29] MEDS ORDERED: FUROSEMIDE 40 MG/4 ML INJECTABLE VIAL IVPUSH SCH (10:00)
[2020-04-29 12:25] VITALS: BMI 20.2
[2020-04-29] MEDS: SPIRONOLACTONE 25 MG TABLET PO SCH (13:12)
[2020-04-29] MEDS: FUROSEMIDE 40 MG/4 ML INJECTABLE VIAL IVPUSH SCH (13:13)
[2020-04-29] MEDS: ASPIRIN COATED 81 MG TABLET.EC PO SCH (13:13)
[2020-04-29] MEDS: LISINOPRIL 5 MG TABLET PO SCH (13:13)
[2020-04-29] MEDS: CARVEDILOL 6.25 MG TABLET (FP) PO SCH ×2 (13:13→21:43)
[2020-04-29] MEDS: ATORVASTATIN CA 40 MG TABLET (FP) PO SCH (21:43)
[2020-04-29] MEDS: MAGNESIUM OXIDE 400 MG TABLET (FP) PO SCH (21:43)
[2020-04-30] MEDS: FUROSEMIDE 40 MG/4 ML INJECTABLE VIAL IVPUSH SCH (09:23)
[2020-04-30] MEDS: ASPIRIN COATED 81 MG TABLET.EC PO SCH (09:24)
[2020-04-30] MEDS: LISINOPRIL 5 MG TABLET PO SCH (09:24)
[2020-04-30] MEDS: SPIRONOLACTONE 25 MG TABLET PO SCH (09:24)
[2020-04-30] MEDS: CARVEDILOL 3.125 MG TABLET (FP) PO SCH ×2 (09:26→22:11)
[2020-04-30] MEDS: ATORVASTATIN CA 40 MG TABLET (FP) PO SCH (22:11)
[2020-04-30] MEDS: MAGNESIUM OXIDE 400 MG TABLET (FP) PO SCH (22:11)
[2020-05-01] MEDS: ASPIRIN COATED 81 MG TABLET.EC PO SCH (09:42)
[2020-05-01] MEDS ORDERED: CARVEDILOL 3.125 MG TABLET (FP) PO SCH (10:23)
[2020-05-01] MEDS ORDERED: SPIRONOLACTONE 25 MG TABLET PO SCH (10:23)
[2020-05-01] MEDS ORDERED: FUROSEMIDE 40 MG/4 ML INJECTABLE VIAL IVPUSH SCH (10:30)
[2020-05-01] MEDS: SPIRONOLACTONE 25 MG TABLET PO SCH (10:32)
[2020-05-01] MEDS: CARVEDILOL 3.125 MG TABLET (FP) PO SCH (10:32)
[2020-05-01] MEDS: LISINOPRIL 5 MG TABLET PO SCH ×3 (10:32→12:12)
[2020-05-01] MEDS: FUROSEMIDE 40 MG/4 ML INJECTABLE VIAL IVPUSH SCH (10:33)
[2020-05-01 16:36] LABS: POTASSIUM 4.4 mmol/L (3.5-5.1)
[2020-05-01 16:38] LABS: BLOOD UREA NITROGEN 23.7 mg/dL (7-18); CALCIUM 8.8 mg/dL (8.5-10.1)
[2020-05-01 16:42] LABS: CREATININE 1.2 mg/dL (0.55-1.3)
[2020-05-01 21:02] LABS: EOS % 4.1 % (0-4.5); HEMATOCRIT 29.1 % (32.4-45.2); HEMOGLOBIN 9.5 GM/dL (10.7-15.3); LYMPH % 19.7 % (8-40); MCH 27.2 pg (25.7-33.7); MCHC 32.7 g/dl (32.0-36.0); MEAN CELL VOLUME 83.1 fl (80-96); MEAN PLT VOLUME 10.5 fl (7.5-11.1); MONO % 15.5 % (3.8-10.2); NEUT % 59.7 % (42.8-82.8); PLATELET COUNT 162 K/MM3 (134-434); RDW 15.5 % (11.6-15.6); WHITE BLOOD COUNT 7.1 K/mm3 (4.0-10.0)
[2020-05-01 21:23] LABS: POTASSIUM 4.8 mmol/L (3.5-5.1)
[2020-05-01 21:25] LABS: CALCIUM 8.8 mg/dL (8.5-10.1)
[2020-05-01 21:26] LABS: ALBUMIN 3.1 g/dl (3.4-5.0); BLOOD UREA NITROGEN 23.9 mg/dL (7-18); MAGNESIUM 2.3 mg/dL (1.8-2.4)
[2020-05-01 21:29] LABS: CREATININE 1.2 mg/dL (0.55-1.3)
[2020-05-01 21:30] LABS: BILIRUBIN,TOTAL 0.4 mg/dL (0.2-1)
[2020-05-01] MEDS: MAGNESIUM OXIDE 400 MG TABLET (FP) PO SCH (21:38)
[2020-05-01] MEDS: ATORVASTATIN CA 40 MG TABLET (FP) PO SCH (21:38)
[2020-05-02] MEDS ORDERED: MELATONIN 5 MG TABLETS PO ONE (01:35)
[2020-05-02 08:06] VITALS: BP 101/54; TEMP 97.8
[2020-05-02 08:06] LABS: BASO % 1.3 % (0-2.0); EOS % 4.8 % (0-4.5); HEMATOCRIT 28.1 % (32.4-45.2); HEMOGLOBIN 9.2 GM/dL (10.7-15.3); LYMPH % 22.5 % (8-40); MCH 27.4 pg (25.7-33.7); MCHC 32.8 g/dl (32.0-36.0); MEAN CELL VOLUME 83.4 fl (80-96); MEAN PLT VOLUME 10.8 fl (7.5-11.1); MONO % 13.3 % (3.8-10.2); NEUT % 58.1 % (42.8-82.8); PLATELET COUNT 157 K/MM3 (134-434); RBC 3.37 M/mm3 (3.60-5.2); RDW 15.2 % (11.6-15.6); WHITE BLOOD COUNT 6.4 K/mm3 (4.0-10.0)
[2020-05-02 08:16] LABS: POTASSIUM 4.6 mmol/L (3.5-5.1)
[2020-05-02 08:24] LABS: BLOOD UREA NITROGEN 21.1 mg/dL (7-18); CALCIUM 8.9 mg/dL (8.5-10.1); MAGNESIUM 2.3 mg/dL (1.8-2.4)
[2020-05-02 08:28] LABS: CREATININE 1.1 mg/dL (0.55-1.3)
[2020-05-02 08:29] LABS: BILIRUBIN,TOTAL 0.5 mg/dL (0.2-1); TOT PROT 5.8 g/dl (6.4-8.2)
[2020-05-02 08:33] VITALS: PULSE 72
== END 2020-05-02 08:50 | disposition short-term general hospital (02) | DRG 291 ==
LOC: JER 13:22 → JERBED 16:27 → J4W 04-29 11:47
PROVIDERS: ADMIT Internal Medicine; ATTEND Nurse Practitioner Family
DX: I13.0 Hypertensive heart and chronic kidney disease with heart failure and stage 1 through stage 4 chronic kidney disease, or unspecified chronic kidney disease (principal); I50.23 Acute on chronic systolic (congestive) heart failure; J96.01 Acute respiratory failure with hypoxia; N17.9 Acute kidney failure, unspecified; I24.8 Other forms of acute ischemic heart disease; N18.9 Chronic kidney disease, unspecified; I25.10 Atherosclerotic heart disease of native coronary artery without angina pectoris; E78.5 Hyperlipidemia, unspecified; I45.10 Unspecified right bundle-branch block; Z95.1 Presence of aortocoronary bypass graft; I27.20 Pulmonary hypertension, unspecified
CPT/HCPCS: 36415; 71045-TC-FY; 80048; 80053; 82550; 83036; 83605; 83735; 83880; 84443; 84484; 85025; 85610; 85730; 87040; 87804; 93005; 93010; 93306-TC; 94660; 94761; 97116-GP; 97161-GP; 99291; C9803; U0003

== ENCOUNTER 2022-07-29 11:09 | Inpatient (IN) | payer OTHER ==
[2022-07-29] MEDS ORDERED: levETIRAcetam 500 MG/5 ML INJECTION VIAL IVPB ONE ×3 (11:31→21:33)
[2022-07-29] MEDS ORDERED: LORazepam 2 MG/ML SDV VIAL IVPUSH ONE (11:32)
[2022-07-29 12:44] LABS: VENOUS BASE EXCESS -11.5 mmol/L (-2-2); VENOUS PCO2 42.6 mmHg (38-52)
[2022-07-29 12:47] LABS: VENOUS PH 7.197 (7.310-7.410)
[2022-07-29 12:52] LABS: BASO % 0.2 % (0-2.0); HEMATOCRIT 31.5 % (32.4-45.2); HEMOGLOBIN 9.9 GM/dL (10.7-15.3); LYMPH % 3.9 % (8-40); MCH 28.2 pg (25.7-33.7); MCHC 31.5 g/dl (32.0-36.0); MEAN CELL VOLUME 89.6 fl (80-96); MEAN PLT VOLUME 10.2 fl (7.5-11.1); MONO % 6.6 % (3.8-10.2); NEUT % 89.3 % (42.8-82.8); PLATELET COUNT 157 10^3/uL (134-434); RBC 3.52 M/mm3 (3.60-5.2); RDW 15.4 % (11.6-15.6); WHITE BLOOD COUNT 13.1 K/mm3 (4.0-10.0)
[2022-07-29 12:54] LABS: EPI CELLS 3 /uL (0-25.1); HYALINE CASTS 1 /uL (0-3.1); URINE APPEARANCE CLEAR; URINE BACTERIA 10 /uL (0-1359); URINE BILIRUBIN NEGATIVE (NEGATIVE); URINE COLOR YELLOW; URINE GLUCOSE (UA) 3+ (NEGATIVE); URINE KETONE NEGATIVE (NEGATIVE); URINE LEUK ESTERASE NEGATIVE (NEGATIVE); URINE NITRITE NEGATIVE (NEGATIVE); URINE PROTEIN 2+ (NEGATIVE); URINE RBC 22 /uL (0-23.9); URINE UROBILINOGEN 0.2 mg/dL (0.2-1.0); URINE WBC 3 /uL (0-25.8)
[2022-07-29 12:59] LABS: INR 0.9 (0.83-1.09); PROTHROMBIN TIME (PATIENT) 10.4 SEC (9.7-13.0)
[2022-07-29 13:02] LABS: ACTIVATED PTT 31.2 SECONDS (25.2-36.5)
[2022-07-29 13:14] LABS: CALCIUM 10.5 mg/dL (8.5-10.1)
[2022-07-29 13:15] LABS: BLOOD UREA NITROGEN 33.6 mg/dL (7-18)
[2022-07-29 13:17] LABS: CREATININE 2.4 mg/dL (0.55-1.3)
[2022-07-29 13:19] LABS: BILIRUBIN,TOTAL 0.4 mg/dL (0.2-1); TOT PROT 7.5 g/dl (6.4-8.2)
[2022-07-29 13:33] LABS: LACTIC ACID 12.4 mmol/L (0.4-2.0)
[2022-07-29] MEDS ORDERED: LACTATED RINGERS SOLUTION 1000 ML INFUS.BAG IV ONE (13:49)
[2022-07-29] MEDS: LACTATED RINGERS SOLUTION 1,000 ML/1,000 ML INFUS.BAG IV SCH (15:00)
[2022-07-29] MEDS ORDERED: ASPIRIN 81 MG CHEWABLE TABLETS PO ONE (15:46)
[2022-07-29 17:17] LABS: BLOOD UREA NITROGEN 33.8 mg/dL (7-18); CALCIUM 9.9 mg/dL (8.5-10.1)
[2022-07-29 17:28] LABS: LACTIC ACID 2.5 mmol/L (0.4-2.0)
[2022-07-29 18:31] LABS: N-TERMINAL BNP 27510.1 pg/ml (5-450)
[2022-07-29] MEDS: levETIRAcetam 500 MG/5 ML INJECTION VIAL IVPB SCH (21:45)
[2022-07-29] MEDS: INSULIN SLIDING SCALE (NOVOLOG) 1 VIAL SQ SCH (21:46)
[2022-07-30] MEDS: INSULIN SLIDING SCALE (NOVOLOG) 1 VIAL SQ SCH ×4 (07:38→21:18)
[2022-07-30 08:39] LABS: CALCIUM 9.8 mg/dL (8.5-10.1)
[2022-07-30 08:40] LABS: ALBUMIN 3.5 g/dl (3.4-5.0); BASO % 0.4 % (0-2.0); BLOOD UREA NITROGEN 35.6 mg/dL (7-18); EOS % 0.1 % (0-4.5); HEMATOCRIT 25.9 % (32.4-45.2); HEMOGLOBIN 8.7 GM/dL (10.7-15.3); MAGNESIUM 2.8 mg/dL (1.8-2.4); MCH 29.3 pg (25.7-33.7); MCHC 33.7 g/dl (32.0-36.0); MEAN CELL VOLUME 86.9 fl (80-96); MEAN PLT VOLUME 10.1 fl (7.5-11.1); MONO % 10.3 % (3.8-10.2); NEUT % 74.2 % (42.8-82.8); PLATELET COUNT 119 10^3/uL (134-434); RBC 2.98 M/mm3 (3.60-5.2); RDW 14.9 % (11.6-15.6); WHITE BLOOD COUNT 9.9 K/mm3 (4.0-10.0)
[2022-07-30 08:42] LABS: PHOSPHOROUS 3.1 mg/dL (2.5-4.9)
[2022-07-30 08:43] LABS: CREATININE 1.7 mg/dL (0.55-1.3); TOT PROT 6.3 g/dl (6.4-8.2)
[2022-07-30 08:44] LABS: BILIRUBIN,TOTAL 0.5 mg/dL (0.2-1)
[2022-07-30] MEDS ORDERED: CLOPIDOGREL BISULFATE 75 MG TABLET (FP) ONE (10:02)
[2022-07-30] MEDS ORDERED: CARVEDILOL 3.125 MG TABLET (FP) ONE (10:02)
[2022-07-30] MEDS ORDERED: ASPIRIN COATED 81 MG TABLET.EC ONE (10:02)
[2022-07-30] MEDS ORDERED: levETIRAcetam 500 MG/5 ML INJECTION VIAL IVPB ONE (10:02)
[2022-07-30] MEDS ORDERED: ENOXAPARIN NA (PORCINE) 30 MG/0.3 ML DISP.SYRIN SQ ONE (10:03)
[2022-07-30] MEDS: ASPIRIN COATED 81 MG TABLET.EC PO SCH (10:49)
[2022-07-30] MEDS: CARVEDILOL 3.125 MG TABLET (FP) PO SCH ×2 (10:49→21:18)
[2022-07-30] MEDS: ENOXAPARIN NA (PORCINE) 30 MG/0.3 ML DISP.SYRIN SQ SCH (10:49)
[2022-07-30] MEDS: levETIRAcetam 500 MG/5 ML INJECTION VIAL IVPB SCH ×2 (10:49→21:18)
[2022-07-30] MEDS: CLOPIDOGREL BISULFATE 75 MG TABLET (FP) PO SCH (10:49)
[2022-07-30] MEDS: LACTATED RINGERS SOLUTION 1,000 ML/1,000 ML INFUS.BAG IV SCH (16:42)
[2022-07-30] MEDS: ATORVASTATIN CA 40 MG TABLET (FP) PO SCH (21:27)
[2022-07-31] MEDS: INSULIN SLIDING SCALE (NOVOLOG) 1 VIAL SQ SCH ×4 (07:26→21:58)
[2022-07-31 07:35] LABS: HEMATOCRIT 25.4 % (32.4-45.2); HEMOGLOBIN 8.8 GM/dL (10.7-15.3); MCH 29.8 pg (25.7-33.7); MCHC 34.6 g/dl (32.0-36.0); MEAN CELL VOLUME 86.1 fl (80-96); MEAN PLT VOLUME 10.8 fl (7.5-11.1); PLATELET COUNT 110 10^3/uL (134-434); RBC 2.95 M/mm3 (3.60-5.2); RDW 14.5 % (11.6-15.6); WHITE BLOOD COUNT 7.4 K/mm3 (4.0-10.0)
[2022-07-31 08:06] LABS: ALBUMIN 3.2 g/dl (3.4-5.0); BLOOD UREA NITROGEN 28.5 mg/dL (7-18); MAGNESIUM 2.4 mg/dL (1.8-2.4)
[2022-07-31 08:09] LABS: CREATININE 1.5 mg/dL (0.55-1.3); PHOSPHOROUS 2.4 mg/dL (2.5-4.9)
[2022-07-31 08:10] LABS: BILIRUBIN,TOTAL 0.6 mg/dL (0.2-1); TOT PROT 5.7 g/dl (6.4-8.2)
[2022-07-31] MEDS: CARVEDILOL 3.125 MG TABLET (FP) PO SCH ×2 (09:55→21:40)
[2022-07-31] MEDS: ENOXAPARIN NA (PORCINE) 30 MG/0.3 ML DISP.SYRIN SQ SCH (09:55)
[2022-07-31] MEDS: levETIRAcetam 500 MG/5 ML INJECTION VIAL IVPB SCH ×2 (09:55→21:40)
[2022-07-31] MEDS: ASPIRIN COATED 81 MG TABLET.EC PO SCH (09:56)
[2022-07-31] MEDS: CLOPIDOGREL BISULFATE 75 MG TABLET (FP) PO SCH (09:56)
[2022-07-31] MEDS ORDERED: PATIENT'S OWN MEDICATION (NON-FORMULARY) (Aspirin [Vazalore] 81 MG Capsule) PO SCH (10:00)
[2022-07-31] MEDS: SACUBITRIL/VALSARTAN 24 MG-26 MG TABLET PO SCH ×2 (14:27→21:52)
[2022-07-31 16:29] VITALS: BMI 19.9
[2022-07-31] MEDS: ATORVASTATIN CA 40 MG TABLET (FP) PO SCH (21:40)
[2022-08-01] MEDS: INSULIN SLIDING SCALE (NOVOLOG) 1 VIAL SQ SCH ×2 (07:17→11:52)
[2022-08-01 08:16] LABS: HEMOGLOBIN 10.3 GM/dL (10.7-15.3); MCH 29.8 pg (25.7-33.7); MCHC 34.3 g/dl (32.0-36.0); MEAN CELL VOLUME 86.9 fl (80-96); MEAN PLT VOLUME 10.6 fl (7.5-11.1); PLATELET COUNT 141 10^3/uL (134-434); RBC 3.45 M/mm3 (3.60-5.2); RDW 14.4 % (11.6-15.6); WHITE BLOOD COUNT 7.8 K/mm3 (4.0-10.0)
[2022-08-01 08:34] LABS: CALCIUM 8.6 mg/dL (8.5-10.1)
[2022-08-01 08:35] LABS: ALBUMIN 2.8 g/dl (3.4-5.0); BLOOD UREA NITROGEN 27.3 mg/dL (7-18)
[2022-08-01 08:37] LABS: PHOSPHOROUS 2.7 mg/dL (2.5-4.9)
[2022-08-01 08:38] LABS: CREATININE 1.4 mg/dL (0.55-1.3)
[2022-08-01 08:39] LABS: TOT PROT 5.5 g/dl (6.4-8.2)
[2022-08-01] MEDS: ASPIRIN COATED 81 MG TABLET.EC PO SCH (11:51)
[2022-08-01] MEDS: ENOXAPARIN NA (PORCINE) 30 MG/0.3 ML DISP.SYRIN SQ SCH (11:51)
[2022-08-01] MEDS: CARVEDILOL 3.125 MG TABLET (FP) PO SCH (11:52)
[2022-08-01] MEDS: CLOPIDOGREL BISULFATE 75 MG TABLET (FP) PO SCH (11:52)
[2022-08-01] MEDS: SACUBITRIL/VALSARTAN 24 MG-26 MG TABLET PO SCH (11:52)
[2022-08-01] MEDS: levETIRAcetam 500 MG/5 ML INJECTION VIAL IVPB SCH (11:52)
[2022-08-01 14:28] VITALS: BP 124/64; PULSE 65; RESP 16; TEMP 98
== END 2022-08-01 14:51 | disposition home or self-care (01) | DRG 101 ==
LOC: JER 11:09 → JERBED 14:08 → J4W 07-30 16:46
PROVIDERS: ADMIT Internal Medicine; ATTEND Internal Medicine
DX: G40.909 Epilepsy, unspecified, not intractable, without status epilepticus (principal); E87.20 Acidosis, unspecified; I24.8 Other forms of acute ischemic heart disease; N17.9 Acute kidney failure, unspecified; I50.32 Chronic diastolic (congestive) heart failure; I45.2 Bifascicular block; E86.0 Dehydration; J44.9 Chronic obstructive pulmonary disease, unspecified; I25.10 Atherosclerotic heart disease of native coronary artery without angina pectoris; E78.00 Pure hypercholesterolemia, unspecified; I45.10 Unspecified right bundle-branch block; I11.0 Hypertensive heart disease with heart failure; Z95.1 Presence of aortocoronary bypass graft; Z95.2 Presence of prosthetic heart valve
CPT/HCPCS: 0241U-QW; 36415; 70450-TC; 70551-TC; 71045-TC-FY; 72125-TC; 80048; 80053; 80061; 81003; 82140; 82550; 82553; 82803; 82962; 83036; 83605; 83735; 83880; 84100; 84439; 84443; 84481; 84484; 85025; 85027; 85610; 85730; 86850; 86900; 86901; 87086; 93005; 93010; 93306-TC; 93880-TC; 97116-GP; 97162-GP; 99291